=== PATIENT | female | born 1985 | race Caucasian/White ===

== ENCOUNTER 2021-03-29 05:44 | Day surgery (SDC) | payer OTHER ==
[~2021-03-29 05:44] MED LIST: PROTONIX40 MG PO; ZOFRAN4 MG PO
== END 2021-03-29 14:25 | disposition home or self-care (01) ==
LOC: CIR.AMB 05:44
PROVIDERS: ATTEND Obstetrics & Gynecology
DX: N87.0 Mild cervical dysplasia (principal); Z20.822 Contact with and (suspected) exposure to COVID-19